=== PATIENT | male | born 1975 ===

== ENCOUNTER 2016-08-03 13:44 | Emergency (ER) | payer OTHER ==
[2016-08-03 14:03] VITALS: BP 149/51; PULSE 61; RESP 18; TEMP 98.5; O2SAT 98
--- NOTE | 2016-08-03 14:15 | ED PDOC ---
HPI: CCC, URI, Sore Throat Time Seen by Provider: 08/03/16 14:06 Chief Complaint (Nursing): ENT Problem Chief Complaint (Provider): ENT problem History Per: Patient, Manager Rental (Pallavi Jennings RN, Certified [employer] Registrar at bedside) History/Exam Limitations: no limitations Onset/Duration Of Symptoms: Days (2x weeks) Current Symptoms Are (Timing): Still Present Location Of Pain: Ear(s) (right ear) Associated Symptoms: denies: Fever, Chills Ear Symptoms: Right: Decreased Hearing Severity: Moderate Additional Complaint(s): 40 year old male with no pertinent medical history presents to the ED with complaints of right ear discomfort that he has been experiencing for the past 2x weeks. He reports that he went to his PMD who prescribed an Rx for antibiotic ear drops which he has been taking with no relief. He states hearing is muffled from right ear. No fever or chills. PMD: Clinic in [place] Past Medical History Reviewed: Historical Data, Nursing Documentation, Vital Signs Vital Signs: Last Vital Signs Temp 98.5 F 08/03/16 14:00 Pulse 61 08/03/16 14:00 Resp 18 08/03/16 14:00 BP 149/51 L 08/03/16 14:00 Pulse Ox 98 08/03/16 14:24 - Medical History PMH: No Chronic Diseases - Surgical History Surgical History: No Surg Hx - Family History Family History: States: No Known Family Hx - Living Arrangements Living Arrangements: With Family - Social History Current smoker - smoking cessation education provided: No Alcohol: None Drugs: Denies - Home Medications Home Medications: Ambulatory Orders Medication Instructions Recorded Antibiotic Drops For Ear 08/03/16 Carbamide Peroxide [Murine Ear 15 ml OT DAILY #1 bottle 08/03/16 Drops] - Allergies Allergies/Adverse Reactions: Allergies Allergy/AdvReac Type Severity Reaction Status Date / Time No Known Allergies Allergy Verified 08/03/16 14:00 Review of Systems ROS Statement: Except As Marked, All Systems Reviewed And Found Negative Constitutional: Negative for: Fever, Chills ENT: Positive for: Ear Pain (right ear), Other (muffled hearing from right ear) Neurological: Negative for: Headache, Dizziness Physical Exam - Reviewed Nursing Documentation Reviewed: Yes Vital Signs Reviewed: Yes - Physical Exam Appears: Positive for: Well, Non-toxic, No Acute Distress Head Exam: Positive for: ATRAUMATIC, NORMOCEPHALIC Skin: Positive for: Normal Color, Warm, DRY Eye Exam: Positive for: Normal appearance, EOMI, PERRL ENT: Positive for: TM Is/Are (normal), Other (left ear is within normal limits. Right ear: moderate amount of cerumen in the auditory canal, no exudate or edema noted) Cardiovascular/Chest: Positive for: Regular Rate, Rhythm Respiratory: Positive for: Normal Breath Sounds. Negative for: Respiratory Distress Neurologic/Psych: Positive for: Alert, Oriented (3x) - ECG O2 Sat by Pulse Oximetry: 98 (RA) Pulse Ox Interpretation: Normal Medical Decision Making Medical Decision Makin:06 Initial impression: 40 year old male with right ear pain. Plan: Patient will be discharged with an Rx for murine ear drops and instructions to get obtain over the counter wax removal kit. Counseling was provided and all questions were answered regarding diagnosis. There is agreement to discharge plan. Return if symptoms persist or worsen. Scribe Attestation: Documented by Frances Barahona, acting as a scribe for Betina Tai PA-C. Provider Scribe Attestation: All medical record entries made by the Scribe were at my direction and personally dictated by me. I have reviewed the chart and agree that the record accurately reflects my personal performance of the history, physical exam, medical decision making, and the department course for this patient. I have also personally directed, reviewed, and agree with the discharge instructions and disposition. Disposition - Clinical Impression Clinical Impression: Excessive cerumen in right ear canal - Patient ED Disposition Is Patient to be Admitted: No Counseled Patient/Family Regarding: Diagnosis, Need For Followup, Rx Given - Disposition Referrals: Jake Thompson MD [Staff Provider] - Disposition: Routine/Home Disposition Time: 14:27 Condition: STABLE Additional Instructions: Take rx meds as directed. Follow up with clinic or with ear, nose and throat specialist for further evaluation. Prescriptions: Carbamide Peroxide [Murine Ear Drops] 15 ml OT DAILY #1 bottle Instructions: Cerumen Impaction (ED), Earache (ED) Print Language: V[place]
== END 2016-08-03 14:41 | disposition home or self-care (01) ==
LOC: H.ER 13:44
DX: H61.21 Impacted cerumen, right ear (principal)